=== PATIENT | female | born 1930 | race Caucasian/White ===

== ENCOUNTER 2016-09-02 19:05 | Inpatient (IN) | payer MEDICARE, OTHER ==
[2016-09-02] MEDS ORDERED: cefTRIAXone\\ROCEPHIN 1 GM VIAL ONE (20:00)
[2016-09-02] MEDS ORDERED: Acetaminophen 325 MG TAB ONE (20:00)
[2016-09-02] MEDS ORDERED: Sodium Chloride 0.9% 100 ML BAG ONE (20:11)
[2016-09-02] MEDS ORDERED: Sodium Chloride 0.9% 1,000 ML BAG ONE (20:11)
[2016-09-02 20:22] LABS: #Basophils 0.1 thou/uL (0.0-0.2); #Lymphocytes 1.1 thou/uL (1.20-3.40); #Monocytes 0.8 thou/uL (0.11-0.59); #Neutrophils 15.2 thou/uL (1.40-6.50); %Basophils 0.6 % (0.0-1.0); %Eosinophils 0.1 % (0.0-10.0); %Lymphocytes 6.3 % (21.0-51.0); %Monocytes 4.5 % (0.0-10.0); %Neutrophils 88.5 % (42.0-75.0); Hemoglobin 12.7 g/dL (12.0-16.0); Mean Corpuscular HGB CONC 33.2 g/dL (32.0-36.0); Mean Corpuscular Hemoglobin 31.4 pg (27.0-31.0); Mean Corpuscular Volume 94.5 fl (81.0-99.0); Mean Platelet Volume 7.7 fL (7.4-10.4); Platelet Count 194 thou/uL (130-400); RBC Distribution Width 13.1 % (11.5-14.5); Red Blood Cell (RBC) Count 4.04 mill/uL (4.20-5.40); White Blood Cell (WBC) Count 17.2 thou/uL (4.8-10.8)
[2016-09-02 20:23] LABS: Clarity Slightly Cloudy (Clear); Leukocyte Trace (Negative); Nitrite Positive (Negative); Protein, Urine (Dipstick) Negative (Neg-Trace)
[2016-09-02 20:24] LABS: Bacteria/HPF 4+ HPF (None Seen); Bilirubin Negative (Negative); Blood, Urine Moderate (Negative); Glucose, Urine (Dipstick) Negative (Negative); RBC/HPF 21-50 HPF (0-3); Renal Epithelial 0-3 HPF (0-3); Squamous Epithelial 0-3 HPF (0-3); Transitional Epithelial 0-3 HPF (0-3); WBC/HPF 21-50 HPF (0-3); Yeast-All Forms Rare HPF (None Seen)
--- NOTE | 2016-09-02 20:26 | RAD ---
ONE VIEW CHEST: Comparison: 10-31-14, 11-08-14 History: Fever. FINDINGS: Normal cardiac silhouette. There is atherosclerosis of the aorta. Pulmonary vessels and hilum are no rmal. Costophrenic angles are clear. Hyperinflation with chronic changes. No masses or consolidation . No pneumothorax or osseous abnormality. IMPRESSION: 1. Hyperinflation. Chronic changes. 2. Atherosclerosis. POS: CHRISTIN
[2016-09-02 20:36] LABS: ALT (SGPT) 10 U/L (8-55); AST (SGOT) 21 U/L (5-34); Albumin 3.2 g/dL (3.4-4.8); Alkaline Phosphatase 59 U/L (40-150); Anion Gap 17 mmol/L (10-20); BUN (Urea Nitrogen) 20 mg/dL (9.8-20.1); Bilirubin, Total 0.4 mg/dL (0.2-1.2); Calc. Creatinine Clearance 0 mL/min (70-130); Calcium 8.4 mg/dL (7.8-10.44); Carbon Dioxide 17 mmol/L (23-31); Chloride 107 mmol/L (98-107); Estimated GFR-MDRD 44; Globulin 3.3 g/dL (2.4-3.5); Glucose 108 mg/dL (83-110); Potassium 3.7 mmol/L (3.5-5.1); Protein, Total 6.5 g/dL (6.0-8.3); Sodium 137 mmol/L (136-145)
[2016-09-02] MEDS ORDERED: Milk Of Magnesia 30 ML UDCUP PO PRN (23:12)
[2016-09-02] MEDS ORDERED: Ondansetron HCl/PF 4 MG/2 ML Vial IVP PRN (23:12)
[2016-09-02] MEDS ORDERED: Docusate 100 MG CAP PO PRN (23:12)
[2016-09-02] MEDS ORDERED: Sodium Chloride 0.9% 1,000 ML IV SCH (23:15)
[2016-09-03 07:03] LABS: Band 10 % (5-11); Hemoglobin 11.8 g/dL (12.0-16.0); Lymphocytes 11 % (21-51); MDiff Complete? YES; Mean Corpuscular HGB CONC 33.7 g/dL (32.0-36.0); Mean Corpuscular Hemoglobin 31.8 pg (27.0-31.0); Mean Corpuscular Volume 94.4 fl (81.0-99.0); Mean Platelet Volume 7.7 fL (7.4-10.4); Monocytes 3 % (0-10); Neutrophil 76 % (42-75); Platelet Count 180 thou/uL (130-400); RBC Distribution Width 13.2 % (11.5-14.5); Red Blood Cell (RBC) Count 3.71 mill/uL (4.20-5.40); White Blood Cell (WBC) Count 17.9 thou/uL (4.8-10.8)
[2016-09-03 08:58] LABS: Anion Gap 13 mmol/L (10-20); BUN (Urea Nitrogen) 19 mg/dL (9.8-20.1); Calc. Creatinine Clearance 39 mL/min (70-130); Calcium 7.8 mg/dL (7.8-10.44); Carbon Dioxide 18 mmol/L (23-31); Chloride 111 mmol/L (98-107); Estimated GFR-MDRD 55; Glucose 85 mg/dL (83-110); Sodium 138 mmol/L (136-145)
[2016-09-03] MEDS ORDERED: Non-Formulary Item 1 EACH (Donepezil Hcl [Aricept] 23 MG) PO SCH (09:00)
[2016-09-03] MEDS ORDERED: Pantoprazole 40 MG VIAL IVP SCH (09:00)
[2016-09-03] MEDS ORDERED: Mometasone/Formoterol 60 PUFF AER INH SCH ×2 (09:15→19:00)
[2016-09-03] MEDS: Gabapentin 300 MG CAP PO SCH ×3 (09:48→20:44)
[2016-09-03] MEDS: Aspirin 81 mg Enteric Coated Tablet PO SCH (09:49)
[2016-09-03] MEDS: Lisinopril 10 MG TAB PO SCH (09:49)
[2016-09-03] MEDS: Mometasone/Formoterol 60 PUFF AER INH SCH (19:47)
[2016-09-03] MEDS: Atorvastatin Calcium 10 MG TAB PO SCH (20:44)
[2016-09-03] MEDS: Donepezil HCl 10 MG TAB PO SCH (20:44)
[2016-09-03] MEDS: cefTRIAXone\\ROCEPHIN 1 GM in Sodium Chloride 0.9% 100 ML IVPB SCH (20:45)
[2016-09-03] MEDS: hydrOXYzine 25 MG TAB PO PRN (20:46)
[2016-09-03] MEDS: Acetaminophen 325 MG TAB PO PRN (20:47)
[2016-09-03] MEDS ORDERED: Non-Formulary Item 1 EACH (Simvastatin [Simvastatin] 20 MG) PO SCH (21:00)
[2016-09-03] MEDS ORDERED: DONEPEZIL 23 MG PO SCH (21:00)
[2016-09-03 22:30] VITALS: BMI 19.8
[2016-09-04] MEDS: Gabapentin 300 MG CAP PO SCH ×3 (08:12→20:10)
[2016-09-04] MEDS: Aspirin 81 mg Enteric Coated Tablet PO SCH (08:12)
[2016-09-04] MEDS: Mometasone/Formoterol 60 PUFF AER INH SCH ×2 (08:12→20:04)
[2016-09-04] MEDS: Lisinopril 10 MG TAB PO SCH (08:13)
[2016-09-04] MEDS: hydrOXYzine 25 MG TAB PO PRN (08:32)
[2016-09-04] MEDS ORDERED: Lorazepam 0.5 MG TAB PO SCH (08:45)
[2016-09-04 09:14] LABS: #Basophils 0.1 thou/uL (0.0-0.2); #Eosinphils 0.2 thou/uL (0.0-0.7); #Lymphocytes 2.3 thou/uL (1.20-3.40); #Monocytes 0.6 thou/uL (0.11-0.59); #Neutrophils 7.6 thou/uL (1.40-6.50); %Basophils 0.9 % (0.0-1.0); %Eosinophils 1.5 % (0.0-10.0); %Lymphocytes 21.3 % (21.0-51.0); %Monocytes 5.3 % (0.0-10.0); %Neutrophils 71.1 % (42.0-75.0); Hemoglobin 12.4 g/dL (12.0-16.0); Mean Corpuscular Hemoglobin 30.3 pg (27.0-31.0); Mean Corpuscular Volume 94.7 fl (81.0-99.0); Mean Platelet Volume 7.6 fL (7.4-10.4); Platelet Count 194 thou/uL (130-400); RBC Distribution Width 13.6 % (11.5-14.5); Red Blood Cell (RBC) Count 4.09 mill/uL (4.20-5.40); White Blood Cell (WBC) Count 10.7 thou/uL (4.8-10.8)
[2016-09-04] MEDS: Benzonatate 100 MG CAP PO PRN (16:46)
[2016-09-04] MEDS: cefTRIAXone\\ROCEPHIN 1 GM in Sodium Chloride 0.9% 100 ML IVPB SCH (20:07)
[2016-09-04] MEDS: Atorvastatin Calcium 10 MG TAB PO SCH (20:10)
[2016-09-04] MEDS: Donepezil HCl 10 MG TAB PO SCH (20:11)
[2016-09-05] MEDS: hydrOXYzine 25 MG TAB PO PRN (04:58)
[2016-09-05] MEDS: Acetaminophen 325 MG TAB PO PRN ×2 (04:58→18:14)
[2016-09-05] MEDS: Mometasone/Formoterol 60 PUFF AER INH SCH ×2 (07:12→18:16)
[2016-09-05] MEDS: Aspirin 81 mg Enteric Coated Tablet PO SCH (08:29)
[2016-09-05] MEDS: Gabapentin 300 MG CAP PO SCH ×3 (08:29→20:20)
[2016-09-05] MEDS: Lisinopril 10 MG TAB PO SCH (08:29)
[2016-09-05] MEDS: cefTRIAXone\\ROCEPHIN 1 GM in Sodium Chloride 0.9% 100 ML IVPB SCH (19:24)
[2016-09-05] MEDS: Atorvastatin Calcium 10 MG TAB PO SCH (20:20)
[2016-09-05] MEDS: Donepezil HCl 10 MG TAB PO SCH (20:20)
[2016-09-06] MEDS: Mometasone/Formoterol 60 PUFF AER INH SCH (07:18)
[2016-09-06] MEDS: Lisinopril 10 MG TAB PO SCH (09:01)
[2016-09-06] MEDS: Gabapentin 300 MG CAP PO SCH ×2 (09:01→14:47)
[2016-09-06] MEDS: Aspirin 81 mg Enteric Coated Tablet PO SCH (09:02)
[2016-09-06] MEDS: Benzonatate 100 MG CAP PO PRN (12:46)
[2016-09-06 13:20] VITALS: BP 130/60; TEMP 98.5
--- NOTE | 2016-09-07 13:42 | PQF ---
ROSASTERLING Mansoor ARMANDOAlfANAISAGUILAR [id number] CLINICAL DOCUMENTATION CLARIFICATION FORM: POST DISCHARGE Addendum to original discharge summary date: ____ Late entry note date: __ DATE: 09/07/2016 ATTN: DR. MONROE The following CLINICAL INDICATORS - SIGNS / SYMPTOMS are present in the medical record: H&P - UROSEPSIS PN - UROSEPSIS RISKS: AMS E. COLI ALZHEIMER DEMENTIA TREATMENTS: IV ANTIBIOTICS Please provide a response below if a more specific term indicating a diagnosis and/or acuity level for this condition can be identified. Please exercise your independent, professional judgment in responding to the clarification form. For continuity of documentation, please document condition throughout progress notes and discharge summary. Thank you. [ ] Present on Admission (POA): [ ] Yes [ ] No [ ] Unable to determine [ y ] Sepsis from a urinary source Related to: [ ] Urinary obstruction [ ] Indwelling catheter [ ] Self-catheterization [ ] Suprapubic catheter [ ] Localized urinary tract infection (without sepsis) [ ] Does not apply to this patient [ ] Unable to determine [ ] Other diagnosis: The physician should be asked if the diagnosis of Urosepsis is intended to mean: (1) generalized sepsis, or (2) urine contaminated by bacteria. Coding Clinic 1987 page 3, 4Q-03. If the patient is septic from a urinary source, the physician should document, sepsis from a urinary source or sepsis . Official Coding Guidelines and Clinics. _ Physician/Provider Signature Date Time (This form is maintained as a part of the permanent medical record) 2014 [email or web address]. All Rights Reserved Whitney Moody CCS, FILM PROCESS [email or web address]-H [email or web address]
== END 2016-09-06 16:18 | DRG 872 ==
LOC: MADERS 19:05 → MADMS 22:20
PROVIDERS: ADMIT Family Medicine; ATTEND Family Medicine
DX: A41.9 Sepsis, unspecified organism (principal); J44.9 Chronic obstructive pulmonary disease, unspecified; G30.9 Alzheimer's disease, unspecified; N39.0 Urinary tract infection, site not specified; F02.80 Dementia in other diseases classified elsewhere, unspecified severity, without behavioral disturbance, psychotic disturbance, mood disturbance, and anxiety; I10 Essential (primary) hypertension; Z66 Do not resuscitate; Z87.891 Personal history of nicotine dependence; E78.5 Hyperlipidemia, unspecified; B96.20 Unspecified Escherichia coli [E. coli] as the cause of diseases classified elsewhere
CPT/HCPCS: 36415; 36416; 51701; 71010; 80048; 80053; 81003; 81015; 85025; 87040; 87077; 87086; 87186; 93005; 94640; 96361; 96365; 96367; A4216; A4353; J0696; J1956; J3370; J7050; J7620

== ENCOUNTER 2017-10-10 13:53 | Outpatient (CLI) | payer MEDICARE, OTHER ==
--- NOTE | 2017-10-10 14:24 | RAD ---
LEFT WRIST 2 VIEWS: Date: 10/10/17 HISTORY: Wrist pain for the last month. FINDINGS: The bones are very demineralized. There are marked arthritic changes of the first carpometacarpal calixto nt space, triscaphe and radiocarpal joint spaces. There is buckling to the cortex of the distal radiu s. This would have to be viewed with suspicion of a radiographically occult fracture. Clinical correl ation as to exact area of patient's pain. IMPRESSION: Buckling to the cortex of the distal radius suggesting radiographically occult fracture. This could i ndicate healing of a fracture as the fracture line is not definitively visible on this exam. POS: GRISELDA
== END 2017-10-10 13:54 | disposition home or self-care (01) ==
LOC: MADRAD 13:53
PROVIDERS: ATTEND Orthopaedic Surgery
DX: M25.532 Pain in left wrist (principal)

== ENCOUNTER 2018-04-19 16:25 | Outpatient (CLI) | payer MEDICARE, OTHER | END 2018-04-19 16:26 | disposition home or self-care (01) | LOC: MADLAB 16:25 | PROVIDERS: ATTEND Family Medicine | DX: B96.3 Hemophilus influenzae [H. influenzae] as the cause of diseases classified elsewhere (principal) | CPT/HCPCS: 87804 ==